=== PATIENT | male | born 1980 | race Caucasian/White ===

== ENCOUNTER 2021-02-12 09:52 | Day surgery (SDC) | payer BC, OTHER ==
[2021-01-25 15:11] VITALS: BMI 41.5
[~2021-02-12 09:52] MED LIST: LACTATED RINGERS 1,000 ML IV SCH; LIDOCAINE 1% (10MG/ML) FOR IV START INTRADERMA PRN
[2021-02-12] MEDS ORDERED: LACTATED RINGERS 1,000 ML IV ONE (10:10)
[2021-02-12 10:11] VITALS: TEMP 98.1
[2021-02-12] MEDS ORDERED: PROPOFOL 10 MG/ML 20 ML VIAL IV ONE (10:44)
[2021-02-12] MEDS ORDERED: MIDAZOLAM 2 MG/2 ML VIAL ONE (10:44)
[2021-02-12] MEDS ORDERED: LIDOCAINE 1% INJ 10MG/ML (20 ML MDV) ONE (10:44)
[2021-02-12] MEDS ORDERED: GLYCOPYRROLATE 0.2 MG/ML 2 ML VIAL ONE (10:44)
[2021-02-12] MEDS ORDERED: KETAMINE 10 MG/ML 20 ML VIAL ONE (10:44)
--- NOTE | 2021-02-12 10:54 | P.GSHP ---
History of Present Illness H&P Date: 02/12/21 Chief Complaint: Rectal bleeding, GERD Patient here today for upper and lower endoscopy. Patient is having bright red blood per rectum recently. Father with colon cancer. Mild chronic reflux. Controlled with omeprazole. History of previous sleeve gastrectomy. Past Medical History Past Medical History: Asthma, GERD/Reflux, Hyperlipidemia, Hypertension Additional Past Medical History / Comment(s): Obesity, chest palpitations. "Lost 100 lbs, no BP problems now". Hx Asthma as a child. "Intermittent bleeding with bowel movements." Hx kidney stones. "Severe Jaundice as a baby." Chronic right leg pain/limps. Migraine headaches. History of Any Multi-Drug Resistant Organisms: None Reported Past Surgical History: Adenoidectomy, Bariatric Surgery, Ear Surgery, Hernia Repair, Orthopedic Surgery Additional Past Surgical History / Comment(s): Right knee arthroscopy, right tibial tumor removed (benign), titanium nail in and out of right tibia, right foot surgery, Gasrtic Sleeve, colonoscopy X2, EGD X2. Past Anesthesia/Blood Transfusion Reactions: Previous Problems w/ Anesthesia Additional Past Anesthesia/Blood Transfusion Reaction / Comment(s): Slow to wake up last 2 surgeries. Past Psychological History: Bipolar, Schizophrenia Additional Psychological History / Comment(s): Clauserphobic. Smoking Status: Former smoker Past Alcohol Use History: Rare Additional Past Alcohol Use History / Comment(s): Quit smoking in 2008. Past Drug Use History: None Reported - Past Family History Father Family Medical History: Cancer Additional Family Medical History / Comment(s): Colon cancer. Medications and Allergies Home Medications Medication Instructions Recorded Confirmed Type Venlafaxine HCl [Effexor XR] 150 mg PO BID 05/16/14 02/07/21 History Atorvastatin [Lipitor] 20 mg PO DAILY 01/25/21 02/07/21 History Multivitamins, Thera [Multivitamin 1 tab PO DAILY 01/25/21 02/07/21 History (formulary)] OLANZapine [ZyPREXA] 20 mg PO HS 01/25/21 02/07/21 History Propranolol HCl [Inderal LA] 160 mg PO HS 01/25/21 02/07/21 History SUMAtriptan SUCCINATE [Imitrex] 100 mg PO DIRECTED PRN 01/25/21 02/07/21 History lamoTRIgine [LaMICtal] 200 mg PO HS 01/25/21 02/07/21 History oxyCODONE-APAP 10-325MG [Percocet 1 tab PO QID 01/25/21 02/07/21 History 10-325 mg] Allergies Allergy/AdvReac Type Severity Reaction Status Date / Time oxcarbazepine Allergy Rash/Hives Verified 01/25/21 14:52 [From Trileptal] Surgical - Exam Vital Signs Temp Pulse Resp BP Pulse Ox 98.1 F 71 18 152/95 98 02/12/21 10:10 02/12/21 10:10 02/12/21 10:10 02/12/21 10:10 02/12/21 10:10 Physical exam: General: Well-developed, well-nourished HEENT: Normocephalic, sclerae nonicteric Abdomen: Nontender, nondistended Extremities: No edema Neuro: Alert and oriented Assessment and Plan (1) Rectal bleeding Narrative/Plan: Will proceed with upper and lower endoscopy Current Visit: Yes Status: Acute Code(s): K62.5 - HEMORRHAGE OF ANUS AND RECTUM SNOMED Code(s): 16222312
--- NOTE | 2021-02-12 11:15 | P.PCN ---
Date of Procedure: 02/12/21 Procedure(s) Performed: PREOPERATIVE DIAGNOSIS: GERD, rectal bleeding POSTOPERATIVE DIAGNOSIS: Mild gastritis, poor prep PROCEDURE: 1. EGD with biopsy 2. Colonoscopy ANESTHESIA: MAC SURGEON: Willy Jackson M.D. SPECIMENS: Antrum ENDOSCOPIC PROCEDURE: The patient was on the endoscopy table in the left de cubitus position. The Olympus gastroscope was inserted into the oropharynx and passed under direct visualization to the region of the third portion of the duodenum. From that point the scope was slowly withdrawn inspecting all surfaces carefully. There were no neoplastic inflammatory or polypoid lesions throughout the duodenum. The pylorus was widely patent. The stomach was carefully inspected. There was mild gastritis present. A biopsy of the antrum took place to rule out H. pylori. Retroflexion was not performed because of the previous sleeve gastrectomy. The sleeve appeared well-healed. The stomach was appropriately sized. No visible hiatal hernia was seen. The esophagus was then carefully examined. There were no neoplastic inflammatory or polypoid lesions throughout the visualized esophagus. The patient was kept on the endoscopy table in the left decubitus position. The Olympus colonoscope was inserted into the anus and passed under direct visualization to the base of the cecum. The appendiceal orifice was visualized. From that point the scope was slowly withdrawn inspecting all surfaces carefully. There were no neoplastic inflammatory or polypoid lesions throughout the cecum, ascending, transverse, descending, sigmoid and rectum. There was no visible diverticulosis noted. The patient's prep was quite poor. Some liquid and solid stool scattered throughout the entire colon. Digital rectal examination was normal. The patient was taken to the recovery room in stable condition per anesthesia guidelines. RECOMMENDATIONS: Resume diet. Patient may consider short-term repeat colonoscopy given the poor prep today. No definite source of rectal bleeding seen. Suspect hemorrhoidal bleeding.
[2021-02-12 11:35] VITALS: BP 138/86; PULSE 77; RESP 18
== END 2021-02-12 12:00 | disposition home or self-care (01) ==
LOC: ORWHC2ENDO 09:52
PROVIDERS: ATTEND Surgery
DX: K21.9 Gastro-esophageal reflux disease without esophagitis (principal); K31.9 Disease of stomach and duodenum, unspecified; K29.71 Gastritis, unspecified, with bleeding; J45.909 Unspecified asthma, uncomplicated; E78.5 Hyperlipidemia, unspecified; I10 Essential (primary) hypertension; F31.9 Bipolar disorder, unspecified; F20.9 Schizophrenia, unspecified; F40.240 Claustrophobia; G47.33 Obstructive sleep apnea (adult) (pediatric); E66.9 Obesity, unspecified; Z68.41 Body mass index [BMI] 40.0-44.9, adult; Z79.899 Other long term (current) drug therapy; Z80.0 Family history of malignant neoplasm of digestive organs; Z87.891 Personal history of nicotine dependence; Z88.8 Allergy status to other drugs, medicaments and biological substances; Z98.84 Bariatric surgery status
CPT/HCPCS: 88305; 45378; 43239; J2250; J2001; J2704

== ENCOUNTER 2023-12-17 11:35 | Emergency (ER) | payer OTHER ==
[2023-12-17 12:11] VITALS: TEMP 98.7
--- NOTE | 2023-12-17 12:36 | ED ---
Head Injury HPI - General Chief complaint: Head Injury Stated complaint: head injury/ [facility] Time Seen by Provider: 12/17/23 11:50 Source: patient Mode of arrival: ambulatory Limitations: no limitations - History of Present Illness Initial comments: Patient is a 43-year-old gentleman presents emergency room with pain and head injury while at work. 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 Patient states that he saw stars and and vision went black for a few seconds. He did not pass out or fall to the ground. Patient did not have any vomiting at the time or since the head injury. He has had radius mild concussions when he was a teenager but nothing recently. No history skull fracture TBI. Patient has some mild pain at this time. He is alert and oriented at this time and moving all extremities. He denies any severe dizziness or neck pain. he is not on anticoagulation. he takes chronic pain medication for chronic leg pain. - Related Data Home Medications Medication Instructions Recorded Confirmed Venlafaxine HCl [Effexor XR] 150 mg PO BID 05/16/14 02/07/21 Atorvastatin [Lipitor] 20 mg PO DAILY 01/25/21 02/07/21 Multivitamins, Thera [Multivitamin 1 tab PO DAILY 01/25/21 02/07/21 (formulary)] OLANZapine [ZyPREXA] 20 mg PO HS 01/25/21 02/07/21 Propranolol HCl [Inderal LA] 160 mg PO HS 01/25/21 02/07/21 SUMAtriptan succinate [Imitrex] 100 mg PO DIRECTED PRN 01/25/21 02/07/21 lamoTRIgine [LaMICtal] 200 mg PO HS 01/25/21 02/07/21 oxyCODONE-APAP 10-325MG [Percocet 1 tab PO QID 01/25/21 02/07/21 10-325 mg] Allergies/Adverse reactions: Allergies Allergy/AdvReac Type Severity Reaction Status Date / Time oxcarbazepine Allergy Rash/Hives Verified 12/17/23 11:42 [From Trileptal] Review of Systems ROS Statement: Those systems with pertinent positive or pertinent negative responses have been documented in the HPI. ROS Other: All systems not noted in ROS Statement are negative. Past Medical History Past Medical History: Asthma, GERD/Reflux, Hyperlipidemia, Hypertension Additional Past Medical History / Comment(s): Obesity, chest palpitations. "Lost 100 lbs, no BP problems now". Hx Asthma as a child. "Intermittent bleeding with bowel movements." Hx kidney stones. "Severe Jaundice as a baby." Chronic right leg pain/limps. Migraine headaches. History of Any Multi-Drug Resistant Organisms: None Reported Past Surgical History: Adenoidectomy, Bariatric Surgery, Ear Surgery, Hernia Repair, Orthopedic Surgery Additional Past Surgical History / Comment(s): Right knee arthroscopy, right tibial tumor removed (benign), titanium nail in and out of right tibia, right foot surgery, Gasrtic Sleeve, colonoscopy X2, EGD X2. Past Anesthesia/Blood Transfusion Reactions: Previous Problems w/ Anesthesia Additional Past Anesthesia/Blood Transfusion Reaction / Comment(s): Slow to wake up last 2 surgeries. Past Psychological History: Bipolar, Schizophrenia Smoking Status: Former smoker Past Alcohol Use History: Rare Past Drug Use History: None Reported - Past Family History Father Family Medical History: Cancer Additional Family Medical History / Comment(s): Colon cancer. General Exam Limitations: no limitations General appearance: alert, in no apparent distress Head exam: Present: other (Mild ecchymosis over the top of the head without any severe swelling and no abrasions or lacerations. There is no hemotympanum bilaterally. Pupils are equal and reactive bilaterally. Negative for any Gomez sign or raccoon eyes. Alert and oriented and moving all extremities) Eye exam: Present: normal appearance, PERRL Pupils: Present: normal accommodation ENT exam: Present: normal exam, mucous membranes moist, TM's normal bilaterally Neck exam: Present: normal inspection, full ROM. Absent: tenderness, meningismus Respiratory exam: Present: normal lung sounds bilaterally. Absent: respiratory distress Cardiovascular Exam: Present: regular rate, normal rhythm GI/Abdominal exam: Present: soft Extremities exam: Present: full ROM Back exam: Present: full ROM Neurological exam: Present: alert, oriented X3, CN II-XII intact Psychiatric exam: Present: normal affect, normal mood Skin exam: Present: warm, dry Course Vital Signs 12/17/23 12/17/23 11:38 13:06 Temperature 98.7 F Pulse Rate 73 68 Respiratory 16 18 Rate Blood Pressure 138/90 95/65 O2 Sat by Pulse 93 L 93 L Oximetry - Reevaluation(s) Reevaluation #1: 12/17/23 1225 Patient is alert and oriented in the emergency room. He is well appearing and there is no sign of a medically injury. I discussed computed tomography scan versus observing symptoms over the next few days with the patient. He prefers to forego the computed tomography scan at this time and will return if he has worsening pain, vomiting, dizziness, vision changes, abnormal behavior abnormal speech or new concerning symptoms. This management of the injury and symptoms was fully discussed with attending ED physician Dr. Ochoa today. Medical Decision Making - Medical Decision Making Was pt. sent in by a medical professional or institution (, PA, ENGRAVING SUPERVISOR, urgent care, hospital, or shelter...) When possible be specific @ -[No] Did you speak to anyone other than the patient for history (EMS, parent, family, police, friend...)? What history was obtained from this source @ -[No] Did you review nursing and triage notes (agree or disagree)? Why? @ -[I reviewed and agree with nursing and triage notes] Were old charts reviewed (outside hosp., previous admission, EMS record, old EKG, old radiological studies, urgent care reports/EKG's, shelter records)? Report findings @ -[No old charts were reviewed] Differential Diagnosis (chest pain, altered mental status, abdominal pain women, abdominal pain men, vaginal bleeding, weakness, fever, dyspnea, syncope, headache, dizziness, GI bleed, back pain, seizure, CVA, palpatations, mental health, musculoskeletal)? @ -Head injury without loss consciousness, concussion, contusion of the head EKG interpreted by me (3pts min.). @ -[As above] X-rays interpreted by me (1pt min.). @ -[None done] CT interpreted by me (1pt min.). @ -[None done] U/S interpreted by me (1pt. min.). @ -[None done] What testing was considered but not performed or refused? (CT, X-rays, U/S, labs)? Why? @ -[Computed tomography scan is discussed however not ordered. As there is only minor blunt head trauma and there is no signs of complications or TBI. A computed tomography scan patient prefers to monitor symptoms at home over the next few days and will return if something arises or changes. What meds were considered but not given or refused? Why? @ -[None] Did you discuss the management of the patient with other professionals (professionals i.e. , PA, ENGRAVING SUPERVISOR, lab, RT, psych nurse, case management social worker, geoscience specialist, teacher, gunnery/ordnance officer, case management social worker)? Give summary @ -NO Was smoking cessation discussed for >3mins.? @ -[No] Was critical care preformed (if so, how long)? @ -[No] Were there social determinants of health that impacted care today? How? (Homelessness, low income, unemployed, alcoholism, drug addiction, transportation, low edu. Level, literacy, decrease access to med. care, custodial, rehab)? @ -[No] Was there de-escalation of care discussed even if they declined (Discuss DNR or withdrawal of care, Hospice)? DNR status @ -[No] What co-morbidities impacted this encounter? (DM, HTN, Smoking, COPD, CAD, Cancer, CVA, ARF, Chemo, Hep., AIDS, mental health diagnosis, sleep apnea, morbid obesity)? @ -[None] Was patient admitted / discharged? Hospital course, mention meds given and route, prescriptions, significant lab abnormalities, going to OR and other pertinent info. @ -the patient is stable and able to follow up as an outpatient. i discussed signs to return to the ed for re evaluation and possible CT scan at that time. the patient and understands and agrees to this plan. the patients injury, symptoms and management were fully discussed and agree upon with attending ed physician Dr Ochoa today. ] Undiagnosed new problem with uncertain prognosis? @ -[No] Drug Therapy requiring intensive monitoring for toxicity (Heparin, Nitro, Insulin, Cardizem)? @ -[No] Were any procedures done? @ -[No] Diagnosis/symptom? @ -[No head trauma, suspected concussion, head injury without loss consciousness Acute, or Chronic, or Acute on Chronic? @ -acute Uncomplicated (without systemic symptoms) or Complicated (systemic symptoms)? @ -[default] Side effects of treatment? @ -[No] Exacerbation, Progression, or Severe Exacerbation? @ -[No] Poses a threat to life or bodily function? How? (Chest pain, [place], [place], pneumonia, PE, COPD, DKA, ARF, appy, cholecystitis, CVA, Diverticulitis, Homicidal, Suicidal, threat to staff... and all critical care pts) @ -[No] Disposition Clinical Impression: Closed head injury, Concussion without loss of consciousness Disposition: HOME SELF-CARE Condition: Good Instructions (If sedation given, give patient instructions): Concussion (ED), Head Injury (ED) Additional Instructions: Return for any worsening pain, vision changes, dizziness, vomiting, abnormal behavior, abnormal speech or new concerning symptoms. Is patient prescribed a controlled substance at d/c from ED?: No If prescribed controlled substance>3 days was MAPS reviewed?: No Referrals: Colby Blevins MD [Primary Care Provider] - 1-2 days Time of Disposition: 12:35
[2023-12-17 13:16] VITALS: BP 95/65; PULSE 68; RESP 18
== END 2023-12-17 13:07 | disposition home or self-care (01) ==
LOC: EC 11:35
DX: S06.0X0A Concussion without loss of consciousness, initial encounter (principal); R40.2410 Glasgow coma scale score 13-15, unspecified time; J45.909 Unspecified asthma, uncomplicated; E78.5 Hyperlipidemia, unspecified; I10 Essential (primary) hypertension; F31.9 Bipolar disorder, unspecified; Z87.891 Personal history of nicotine dependence; Z79.899 Other long term (current) drug therapy; Z88.8 Allergy status to other drugs, medicaments and biological substances; W22.09XA Striking against other stationary object, initial encounter
CPT/HCPCS: 99283

== ENCOUNTER 2023-12-24 07:13 | Emergency (ER) | payer OTHER ==
[2023-12-24] MEDS: SODIUM CHLORIDE 0.9% 1,000 ML IV STA (07:36)
--- NOTE | 2023-12-24 07:46 | ED ---
Headache HPI - General Chief Complaint: Headache Stated Complaint: headache,dizziness Time Seen by Provider: 12/24/23 07:19 Source: patient, RN notes reviewed Mode of arrival: ambulatory Limitations: no limitations - History of Present Illness Initial Comments: This is a 43-year-old male who presents to the emergency department for a headache. Patient was evaluated here 7 days ago for a head injury after hitting the top of his head on a steel beam at work. States that since then he has had a persistent headache and dizziness. He is taking ibuprofen and his Imitrex without any relief. He did not have any imaging done when he first came here. He was told that if symptoms worsen he needed to return. He did not have any loss of consciousness during this event and is not taking any blood thinners. MD Complaint: headache - Related Data Home Medications Medication Instructions Recorded Confirmed Venlafaxine HCl [Effexor XR] 150 mg PO BID 05/16/14 02/07/21 Atorvastatin [Lipitor] 20 mg PO DAILY 01/25/21 02/07/21 Multivitamins, Thera [Multivitamin 1 tab PO DAILY 01/25/21 02/07/21 (formulary)] OLANZapine [ZyPREXA] 20 mg PO HS 01/25/21 02/07/21 Propranolol HCl [Inderal LA] 160 mg PO HS 01/25/21 02/07/21 SUMAtriptan succinate [Imitrex] 100 mg PO DIRECTED PRN 01/25/21 02/07/21 lamoTRIgine [LaMICtal] 200 mg PO HS 01/25/21 02/07/21 oxyCODONE-APAP 10-325MG [Percocet 1 tab PO QID 01/25/21 02/07/21 10-325 mg] Previous Rx's Medication Instructions Recorded Ibuprofen 800 mg PO Q8H PRN #30 tab 12/24/23 Ondansetron Odt [Zofran Odt] 4 mg PO Q8HR PRN #20 tab 12/24/23 Allergies Allergy/AdvReac Type Severity Reaction Status Date / Time oxcarbazepine Allergy Rash/Hives Verified 12/17/23 11:42 [From Trileptal] Review of Systems ROS Statement: Those systems with pertinent positive or pertinent negative responses have been documented in the HPI. ROS Other: All systems not noted in ROS Statement are negative. Past Medical History Past Medical History: Asthma, GERD/Reflux, Hyperlipidemia, Hypertension Additional Past Medical History / Comment(s): Obesity, chest palpitations. "Lost 100 lbs, no BP problems now". Hx Asthma as a child. "Intermittent bleeding with bowel movements." Hx kidney stones. "Severe Jaundice as a baby." Chronic right leg pain/limps. Migraine headaches. History of Any Multi-Drug Resistant Organisms: None Reported Past Surgical History: Adenoidectomy, Bariatric Surgery, Ear Surgery, Hernia Repair, Orthopedic Surgery Additional Past Surgical History / Comment(s): Right knee arthroscopy, right tibial tumor removed (benign), titanium nail in and out of right tibia, right foot surgery, Gasrtic Sleeve, colonoscopy X2, EGD X2. Past Anesthesia/Blood Transfusion Reactions: Previous Problems w/ Anesthesia Additional Past Anesthesia/Blood Transfusion Reaction / Comment(s): Slow to wake up last 2 surgeries. Past Psychological History: Bipolar, Schizophrenia Smoking Status: Former smoker Past Alcohol Use History: Rare Past Drug Use History: None Reported - Past Family History Father Family Medical History: Cancer Additional Family Medical History / Comment(s): Colon cancer. General Exam Limitations: no limitations General appearance: alert, in no apparent distress Head exam: Present: atraumatic, normocephalic, normal inspection Eye exam: Present: normal appearance, PERRL, EOMI. Absent: scleral icterus, conjunctival injection, periorbital swelling Respiratory exam: Present: normal lung sounds bilaterally. Absent: respiratory distress, wheezes, rales, rhonchi, stridor Cardiovascular Exam: Present: regular rate, normal rhythm, normal heart sounds. Absent: systolic murmur, diastolic murmur, rubs, gallop, clicks Neurological exam: Present: alert, oriented X3, CN II-XII intact Psychiatric exam: Present: normal affect, normal mood Skin exam: Present: warm, dry, intact, normal color. Absent: rash Course Vital Signs 12/24/23 12/24/23 12/24/23 07:15 09:56 11:26 Temperature 98.6 F 98.4 F 98.2 F Pulse Rate 76 82 Respiratory 16 18 18 Rate Blood Pressure 165/104 120/78 138/91 O2 Sat by Pulse 98 98 99 Oximetry Medical Decision Making - Medical Decision Making This is a 43-year-old male who presents to the emergency department for a headache. Was pt. sent in by a medical professional or institution? @ -No Did you speak to anyone other than the patient for history? @ -No Did you review nursing and triage notes? @ -Yes, and I agree, it is accurate with regards to the patient's symptoms. Were old charts reviewed? @ -No Differential Diagnosis? @ -Differential Headache: Migraine, tension, cluster, carbon monoxide, central venous thrombosis, pension karma temporal arteritis, acute closure glaucoma, intercranial hemorrhage, mastoiditis, sinusitis, head injury, this is not meant to be an all-inclusive list. EKG interpreted by me (3pts min.)? @ -Not obtained X-rays interpreted by me (1pt min.)? @ -Not obtained CT interpreted by me (1pt min.)? @ -Computed tomography scan of the brain and c-spine obtained. My interpreta tion identifies no evidence of an acute intracranial hemorrhage, skull fracture, or cervical spine fracture. U/S interpreted by me (1pt. min.)? @ -Not obtained What testing was considered but not performed? (CT, X-rays, U/S, labs)? Why? @ -None What meds were considered but not given? Why? @ -None Did you discuss the management of the patient with other professionals? @ -No Did you reconcile home meds? @ -No Was smoking cessation discussed for >3mins.? @ -No Was critical care preformed (if so, how long)? @ -No Were there social determinants of health that impacted care today? How? (Homelessness, low income, unemployed, alcoholism, drug addiction, transportation, low edu. Level, literacy, decrease access to med. care, skilled nursing, rehab)? @ -No Was there de-escalation of care discussed even if they declined? (Discuss DNR or withdrawal of care, Hospice)? @ -No What co-morbidities impacted this encounter? (DM, HTN, Smoking, COPD, CAD, Cancer, CVA, Hep., AIDS, mental health diagnosis, sleep apnea, morbid obesity)? @ -None Was patient admitted / discharged? @ -Discharged. CT scan of the brain and C-spine obtained revealing no acute process. Patient initially treated with a migraine cocktail consisting of IV fluids, Toradol, Decadron, Reglan, and Benadryl. He only had mild improvement in symptoms and was given an additional dose of Toradol along with Dilaudid. States that symptoms improved to a reasonable extent at that point and he was comfortable with discharge home. Discussed with the patient the possibility that he may have developed a concussion. Prescription for ibuprofen and Zofran provided with dosing instructions reviewed. Otherwise advised follow-up with his primary care provider. Undiagnosed new problem with uncertain prognosis? @ -None Drug Therapy requiring intensive monitoring for toxicity (Heparin, Nitro, Insulin, Cardizem)? @ -None Were any procedures done? @ -None Diagnosis/symptom? @ -Headache Acute, or Chronic, or Acute on Chronic? @ -Acute Uncomplicated (without systemic symptoms) or Complicated (systemic symptoms)? @ -Uncomplicated Side effects of treatment? @ -None Exacerbation, Progression, or Severe Exacerbation] @ -Not applicable Poses a threat to life or bodily function? @ -No Return precautions reviewed in depth, the patient is instructed to return to the emergency department with any new, worsening, or concerning symptoms. Patient verbalized understanding. This case was discussed in detail with the attending ED physician, Dr. Salazar Presentation, findings, and treatment plan discussed in detail as well. - Radiology Data Radiology results: report reviewed, image reviewed Disposition Clinical Impression: Headache Disposition: HOME SELF-CARE Instructions (If sedation given, give patient instructions): Acute Headache (ED) Additional Instructions: Return to the emergency department with any new, worsening, or concerning symptoms. Alternate with ibuprofen and Tylenol as needed for pain relief. Take the Zofran up to every 8 hours as needed for nausea and vomiting. Follow up with your primary care provider in 1-2 days. Prescriptions: Ibuprofen 800 mg PO Q8H PRN #30 tab PRN Reason: Pain Ondansetron Odt [Zofran Odt] 4 mg PO Q8HR PRN #20 tab PRN Reason: Nausea And Vomiting Is patient prescribed a controlled substance at d/c from ED?: No Referrals: Colby Blevins MD [Primary Care Provider] - 1-2 days Time of Disposition: 10:47
[2023-12-24] MEDS: diphenhydrAMINE 50 MG/ML 1 ML VIAL IVP STA (07:59)
[2023-12-24] MEDS: DEXAMETHASONE SOD PHOSPHATE 10 MG/ML 1 ML VIAL IVP STA (07:59)
[2023-12-24] MEDS: METOCLOPRAMIDE 5 MG/ML 2 ML VIAL IVP STA (07:59)
[2023-12-24] MEDS: KETOROLAC 15 MG/ML 1 ML VIAL IVP STA ×2 (08:00→09:31)
--- NOTE | 2023-12-24 09:01 | CT ---
EXAMINATION TYPE: CT brain wo con DATE OF EXAM: 12/24/2023 COMPARISON: None INDICATION: Head injury last week, headache DLP: 1138 mGycm, Automated exposure control for dose reduction was used. CONTRAST: None CT of the brain is performed utilizing 3 mm thick sections through the posterior fossa and 3 mm thick sections through the remaining calvarium. Study is performed within 24 hours of arrival to the hosp [place]. No abnormal hyperdensity is present to suggest an acute intracranial hemorrhage. No mass lesion is evident. No acute infarcts are evident. Ventricles and sulci are appropriate for the patient age. Paranasal sinuses and mastoid air cells within the [id number] are clear. IMPRESSION: 1. No acute intracranial process. Follow-up MRI can be performed as clinically indicated.
[2023-12-24] MEDS: HYDROmorphone 0.5 MG/0.5 ML SYRINGE IVP STA (09:30)
[2023-12-24 10:00] VITALS: RESP 18
[2023-12-24 11:39] VITALS: BP 138/91; PULSE 82; TEMP 98.2
== END 2023-12-24 11:28 | disposition home or self-care (01) ==
LOC: EC 07:13
DX: R51.9 Headache, unspecified (principal); I10 Essential (primary) hypertension; J45.909 Unspecified asthma, uncomplicated; E78.5 Hyperlipidemia, unspecified; F31.9 Bipolar disorder, unspecified; F20.9 Schizophrenia, unspecified; E66.9 Obesity, unspecified; Z68.41 Body mass index [BMI] 40.0-44.9, adult; Z79.899 Other long term (current) drug therapy; Z88.8 Allergy status to other drugs, medicaments and biological substances; Z87.891 Personal history of nicotine dependence
CPT/HCPCS: 70450; 99284; 96374; 96375 ×4; 96376; 96361 ×2; J1200; J1100; J2765; J1885; J1170

== ENCOUNTER 2024-11-08 07:37 | Day surgery (SDC) | payer BC, OTHER ==
[2024-11-02 15:07] VITALS: BMI 43.5
[2024-11-08 08:32] VITALS: RESP 16; TEMP 97.4
[2024-11-08] MEDS: SODIUM CHLORIDE 0.9% 1,000 ML IV ONE (08:40)
[2024-11-08] MEDS ORDERED: PROPOFOL 10 MG/ML 20 ML VIAL IV ONE (09:05)
--- NOTE | 2024-11-08 09:11 | P.GSHP ---
History of Present Illness H&P Date: 11/08/24 Chief Complaint: GI bleed 44-year-old male here for EGD and colonoscopy. Patient with recent melanotic stools and bright red blood per rectum. Patient has a history of previous rectal bleeding. Last upper and lower endoscopy 3.5 years ago. Family history of colon cancer in his father. Past Medical History Past Medical History: Asthma, GERD/Reflux Additional Past Medical History / Comment(s): Obesity, chest palpitations. "Lost 100 lbs, no BP problems now". Hx Asthma as a child. "Intermittent bleeding with bowel movements." Hx kidney stones. "Severe Jaundice as a baby." Chronic right leg pain/limps. Migraine headaches. History of Any Multi-Drug Resistant Organisms: None Reported Past Surgical History: Adenoidectomy, Bariatric Surgery, Ear Surgery, Hernia Repair, Orthopedic Surgery Additional Past Surgical History / Comment(s): Right knee arthroscopy, right tibial tumor removed (benign), right foot surgery, Gasrtic Sleeve, colonoscopy X2, EGD X2. Past Anesthesia/Blood Transfusion Reactions: Previous Problems w/ Anesthesia Additional Past Anesthesia/Blood Transfusion Reaction / Comment(s): Slow to wake up last 2 surgeries., no blood transfusion Smoking Status: Former smoker - Past Family History Father Family Medical History: Cancer Additional Family Medical History / Comment(s): Colon cancer. Mother Family Medical History: Cancer Additional Family Medical History / Comment(s): lymphoma from round up Medications and Allergies Home Medications Medication Instructions Recorded Confirmed Type Venlafaxine HCl [Effexor XR] 150 mg PO BID 05/16/14 11/08/24 History OLANZapine [ZyPREXA] 30 mg PO HS 01/25/21 11/08/24 History Propranolol HCl [Inderal LA] 160 mg PO HS 01/25/21 11/08/24 History SUMAtriptan succinate [Imitrex] 100 mg PO DIRECTED PRN 01/25/21 11/08/24 History lamoTRIgine [LaMICtal] 200 mg PO DAILY 01/25/21 11/08/24 History oxyCODONE-APAP 10-325MG [Percocet 1 tab PO QID 01/25/21 11/08/24 History 10-325 mg] Ibuprofen 800 mg PO Q8H PRN #30 tab 12/24/23 11/08/24 Rx Ondansetron Odt [Zofran Odt] 4 mg PO Q8HR PRN #20 tab 12/24/23 11/08/24 Rx Baclofen 10 mg PO HS 11/02/24 11/08/24 History Cariprazine HCl [Vraylar] 3 mg PO DAILY 11/02/24 11/08/24 History Allergies Allergy/AdvReac Type Severity Reaction Status Date / Time oxcarbazepine Allergy Rash/Hives Verified 11/08/24 08:35 [From Trileptal] Surgical - Exam Vital Signs Temp Pulse Resp BP Pulse Ox 97.4 F L 72 16 122/77 97 11/08/24 08:29 11/08/24 08:29 11/08/24 08:29 11/08/24 08:29 11/08/24 08:29 Physical exam: General: Well-developed, well-nourished HEENT: Normocephalic, sclerae nonicteric Abdomen: Nontender, nondistended Extremities: No edema Neuro: Alert and oriented Assessment and Plan (1) Rectal bleeding Narrative/Plan: Will proceed with upper and lower endoscopy at this time. Current Visit: No Status: Acute Code(s): K62.5 - HEMORRHAGE OF ANUS AND RECTUM SNOMED Code(s): 58327424
--- NOTE | 2024-11-08 09:31 | P.PCN ---
Date of Procedure: 11/08/24 Procedure(s) Performed: PREOPERATIVE DIAGNOSIS: GI bleed, melena, rectal bleeding POSTOPERATIVE DIAGNOSIS: Mild gastritis, sigmoid colon polyp, mild proctitis PROCEDURE: 1. EGD with biopsy 2. Colonoscopy with snare polypectomy and biopsy [place] [facility] [place] [facility] [place]: Willy Jackson M.D. SPECIMENS: Antrum ENDOSCOPIC PROCEDURE: The patient was on the endoscopy table in the left decubitus position. The Olympus gastroscope was inserted into the oropharynx and passed under direct visualization to the region of the third portion of the duodenum. From that point the scope was slowly withdrawn inspecting all surfaces carefully. There were no neoplastic inflammatory or polypoid lesions throughout the duodenum. The pylorus was widely patent. The stomach was carefully inspected. There was mild gastritis present. The patient's previous sleeve was patent without evidence of stricture or ulceration. There was no visible hiatal hernia. The esophagus was then carefully examined. There were no neoplastic inflammatory or polypoid lesions throughout the visualized esophagus. The patient was kept on the endoscopy table in the left decubitus position. The Olympus colonoscope was inserted into the anus and passed under direct visualization to the base of the cecum. The appendiceal orifice was visualized. From that point the scope was slowly withdrawn inspecting all surfaces carefully. There were no neoplastic inflammatory or polypoid lesions throughout the cecum, ascending, transverse, and descending colon. In the sigmoid colon a small polyp was seen and removed using the cold snare technique. The remainder of the sigmoid was normal. In the distal rectum involving the last 3 to 4 cm of the rectum there was mild proctitis present. Biopsies were taken. This is likely the source of recent bleeding. Digital rectal examination was normal. No diverticulosis was seen. The patient was taken to the recovery room in stable condition per anesthesia guidelines. RECOMMENDATIONS: Await biopsy results. Resume diet. Repeat colonoscopy 5 years.
[2024-11-08 10:14] VITALS: BP 95/63; PULSE 73
== END 2024-11-08 10:15 | disposition home or self-care (01) ==
LOC: ORWHC2ENDO 07:37
PROVIDERS: ATTEND Surgery
DX: K62.89 Other specified diseases of anus and rectum (principal); K63.89 Other specified diseases of intestine; D12.5 Benign neoplasm of sigmoid colon; K21.9 Gastro-esophageal reflux disease without esophagitis; K29.50 Unspecified chronic gastritis without bleeding; G43.909 Migraine, unspecified, not intractable, without status migrainosus; F31.9 Bipolar disorder, unspecified; E66.01 Morbid (severe) obesity due to excess calories; Z80.0 Family history of malignant neoplasm of digestive organs; Z79.891 Long term (current) use of opiate analgesic; Z79.899 Other long term (current) drug therapy; Z98.890 Other specified postprocedural states; Z87.891 Personal history of nicotine dependence; Z98.84 Bariatric surgery status; Z87.442 Personal history of urinary calculi; Z88.8 Allergy status to other drugs, medicaments and biological substances
CPT/HCPCS: 88305; 45380; 45385; 43239; J2704

== ENCOUNTER → 2024-11-21 | Outpatient (CLI) | payer OTHER ==
--- NOTE | 2024-11-21 11:19 | XR ---
EXAMINATION TYPE: XR elbow complete RT DATE OF EXAM: 11/21/2024 11:15 AM INDICATION: Patient age:Male; 44 years old; Reason for study: M77.11 LATERAL EPICONDYLITIS, RIGHT ELBOW; PHH. pain COMPARISON: None TECHNIQUE: The right elbow was examined in AP, lateral, and oblique projections. FINDINGS: No evidence of any acute osseous pathology, joint dislocation, or soft tissue swelling is n oted. No evidence of joint effusion is present. IMPRESSION: No evidence of acute fracture. [facility], , 11/21/2024 11:16 AM
== END | disposition home or self-care (01) ==
LOC: RADXRMAIN 10:57
PROVIDERS: ATTEND Emergency Medicine
DX: M77.11 Lateral epicondylitis, right elbow (principal)

== ENCOUNTER 2025-01-30 16:29 | Inpatient (IN) | payer BC, MEDICAID, OTHER ==
--- NOTE | 2025-01-30 16:53 | ED ---
Psych HPI - General Chief Complaint: Psychiatric Symptoms Stated Complaint: Mental Health Eval. Time Seen by Provider: 01/30/25 16:36 Source: patient, RN notes reviewed Mode of arrival: ambulatory Limitations: no limitations - History of Present Illness Initial Comments: This is a 44-year-old male presents emergency department with chief complaint of needing psychiatric evaluation. Patient states he is hearing voices, delusional thoughts and hallucinations. Patient states he has schizoaffective he states he has been taking his medications as directed but states that symptoms have been worsening. Patient denies being suicidal homicidal denies any drug or alcohol abuse. - Related Data Home Medications Medication Instructions Recorded Confirmed Venlafaxine HCl [Effexor XR] 300 mg PO HS 05/16/14 01/30/25 SUMAtriptan succinate [Imitrex] 100 mg PO DAILY PRN 01/25/21 01/30/25 lamoTRIgine [LaMICtal] 200 mg PO HS 01/25/21 01/30/25 oxyCODONE-APAP 10-325MG [Percocet 1 tab PO QID 01/25/21 01/30/25 10-325 mg] Baclofen 10 mg PO HS 11/02/24 01/30/25 Cariprazine HCl [Vraylar] 3 mg PO DAILY 11/02/24 01/30/25 Gabapentin [Neurontin] 300 mg PO TID 01/30/25 01/30/25 Ketoconazole 2% Shampoo [Nizoral] 1 applic TOPICAL Q3D 01/30/25 01/30/25 Lurasidone [Latuda] 40 mg PO DAILY 01/30/25 01/30/25 OLANZapine [ZyPREXA] 10 mg PO HS 01/30/25 01/30/25 OLANZapine [ZyPREXA] 20 mg PO HS 01/30/25 01/30/25 Propranolol HCl [Propranolol HCl 120 mg PO HS 01/30/25 01/30/25 ER] Topiramate [Topamax] 100 mg PO W/SUPPER 01/30/25 01/30/25 lamoTRIgine [LaMICtal] 100 mg PO DAILY 01/30/25 01/30/25 Allergies Allergy/AdvReac Type Severity Reaction Status Date / Time oxcarbazepine Allergy Rash/Hives Verified 01/30/25 16:57 [From Trileptal] Review of Systems ROS Statement: Those systems with pertinent positive or pertinent negative responses have been documented in the HPI. ROS Other: All systems not noted in ROS Statement are negative. Past Medical History Past Medical History: Asthma, GERD/Reflux Additional Past Medical History / Comment(s): Obesity, chest palpitations. "Lost 100 lbs, no BP problems now". Hx Asthma as a child. "Intermittent bleeding with bowel movements." Hx kidney stones. "Severe Jaundice as a baby." Chronic right leg pain/limps. Migraine headaches. History of Any Multi-Drug Resistant Organisms: None Reported Past Surgical History: Adenoidectomy, Bariatric Surgery, Ear Surgery, Hernia Repair, Orthopedic Surgery Additional Past Surgical History / Comment(s): Right knee arthroscopy, right tibial tumor removed (benign), right foot surgery, Gasrtic Sleeve, colonoscopy X2, EGD X2. Past Anesthesia/Blood Transfusion Reactions: Previous Problems w/ Anesthesia Additional Past Anesthesia/Blood Transfusion Reaction / Comment(s): Slow to wake up last 2 surgeries., no blood transfusion Past Psychological History: Bipolar, Schizophrenia Smoking Status: Former smoker - Past Family History Father Family Medical History: Cancer Additional Family Medical History / Comment(s): Colon cancer. Mother Family Medical History: Cancer Additional Family Medical History / Comment(s): lymphoma from round up General Exam Limitations: no limitations General appearance: alert, in no apparent distress Head exam: Present: atraumatic, normocephalic, normal inspection Eye exam: Present: normal appearance, PERRL, EOMI. Absent: scleral icterus, conjunctival injection, periorbital swelling ENT exam: Present: normal exam, mucous membranes moist Neck exam: Present: normal inspection. Absent: tenderness, meningismus, lymphadenopathy Respiratory exam: Present: normal lung sounds bilaterally. Absent: respiratory distress, wheezes, rales, rhonchi, stridor Cardiovascular Exam: Present: regular rate, normal rhythm, normal heart sounds. Absent: systolic murmur, diastolic murmur, rubs, gallop, clicks Back exam: Absent: CVA tenderness (R), CVA tenderness (L) Neurological exam: Present: alert, oriented X3 Psychiatric exam: Present: flat affect Skin exam: Present: warm, dry, intact, normal color. Absent: rash Course Vital Signs 01/30/25 16:33 Temperature 98.1 F Pulse Rate 67 Respiratory 16 Rate Blood Pressure 183/99 O2 Sat by Pulse 98 Oximetry Medical Decision Making - Medical Decision Making Was pt. sent in by a medical professional or institution (, [facility], urgent care, hospital, or fpc...) When possible be specific @ -No Did you speak to anyone other than the patient for history (EMS, parent, family, police, friend...)? What history was obtained from this source @ -No Did you review nursing and triage notes (agree or disagree)? Why? @ -I reviewed and agree with nursing and triage notes Were old charts reviewed (outside hosp., previous admission, EMS record, old EKG, old radiological studies, urgent care reports/EKG's, fpc records)? Report findings @ -No old charts were reviewed Differential Diagnosis (chest pain, altered mental status, abdominal pain women, abdominal pain men, vaginal bleeding, weakness, fever, dyspnea, syncope, headache, dizziness, GI bleed, back pain, seizure, CVA, palpatations, mental health, musculoskeletal)? @ -Differential Mental Health Depression, anxiety, bipolar, psychosis, schizophrenia, borderline personality, situational depression, adjustment disorder, behavioral disorder, brain tumor, malingering, substance abuse, encephalopathy, medication reaction, dementia, hypothyroidism, degenerative neurologic disorder, lupus.... This is not meant to be all-inclusive list EKG interpreted by me (3pts min.). @ -As above X-rays interpreted by me (1pt min.). @ -None done CT interpreted by me (1pt min.). @ -None done U/S interpreted by me (1pt. min.). @ -None done What testing was considered but not performed or refused? (CT, X-rays, U/S, labs)? Why? @ -None What meds were considered but not given or refused? Why? @ -None Did you discuss the management of the patient with other professionals (professionals i.e. , [facility], [facility], lab, RT, psych nurse, forensic social worker, razor sharpener, teacher, juvenile correctional officer, block and case maker)? Give summary @ -EPS who evaluated patient recommended inpatient treatment Was smoking cessation discussed for >3mins.? @ -No Was critical care preformed (if so, how long)? @ -No Were there social determinants of health that impacted care today? How? (Homelessness, low income, unemployed, alcoholism, drug addiction, transportation, low edu. Level, literacy, decrease access to med. care, shelter, rehab)? @ -No Was there de-escalation of care discussed even if they declined (Discuss DNR or withdrawal of care, Hospice)? DNR status @ -No What co-morbidities impacted this encounter? (DM, HTN, Smoking, COPD, CAD, Cancer, CVA, ARF, Chemo, Hep., AIDS, mental health diagnosis, sleep apnea, morbid obesity)? @ -None Was patient admitted / discharged? Hospital course, mention meds given and route, prescriptions, significant lab abnormalities, going to OR and other pertinent info. @ -[Admitted to 3 W. Undiagnosed new problem with uncertain prognosis? @ -No Drug Therapy requiring intensive monitoring for toxicity (Heparin, Nitro, Insulin, Cardizem)? @ -No Were any procedures done? @ -No Diagnosis/symptom? @ -Acute psychosis Acute, or Chronic, or Acute on Chronic? @ -Acute Uncomplicated (without systemic symptoms) or Complicated (systemic symptoms)? @ -Complicated Side effects of treatment? @ -No Exacerbation, Progression, or Severe Exacerbation? @ -No Poses a threat to life or bodily function? How? (Chest pain, USA, ND, pneumonia, PE, COPD, DKA, ARF, appy, cholecystitis, CVA, Diverticulitis, Homicidal, Suicidal, threat to staff... and all critical care pts) @ -No Disposition Clinical Impression: Bipolar 1 disorder, Acute psychosis Disposition: TRANSFER TO PSYCH HOSP/UNIT Referrals: Colby Blevins MD [Primary Care Provider] - 1-2 days Time of Disposition: 18:22
[2025-01-30 18:35] LABS: Cocaine Screen,Urine Not Detected (NotDetected); Opiate Screen,Urine Not Detected (NotDetected); Phencyclidine Screen,Urine Not Detected (NotDetected); Urn Cannabinoid Scrn Detected (NotDetected)
[2025-01-30 18:36] LABS: Amphetamine Screen,Urine Detected (NotDetected); Barbiturate Screen,Urine Not Detected (NotDetected); Benzodiazepines Screen,Urine Not Detected (NotDetected); Methadone Screen, Urine Not Detected (NotDetected); Oxycodone Screen, Urine Detected (NotDetected); Tricyclic Antidepressant,Urine Not Detected (NotDetected)
[2025-01-30] MEDS ORDERED: MAGNESIUM HYDROXIDE 2,400 MG/30 ML CUP PO PRN (22:29)
[2025-01-30] MEDS ORDERED: LORazepam 2 MG/ML INJ IM PRN (22:29)
[2025-01-30] MEDS ORDERED: LORazepam 1 MG TAB PO PRN (22:29)
[2025-01-30] MEDS ORDERED: MAG HYDROX/AL HYDROX/SIMETH 355 ML BOTTLE PO PRN (22:29)
[2025-01-30] MEDS: ACETAMINOPHEN TAB 325 MG TAB PO PRN (22:59)
[2025-01-31 08:26] LABS: Eosinophils # (A) 0.12 10*3/uL (0.04-0.35); Eosinophils % (A) 2.3 %; HCT 42.5 % (39.6-50.0); HGB 14.2 g/dL (13.0-17.0); Lymphocytes # (A) 1.46 10*3/uL (0.90-5.00); Lymphocytes % (A) 27.4 %; MCH 32.3 pg (27.0-32.0); MCHC 33.4 g/dL (32.0-37.0); MCV 96.8 fL (80.0-97.0); Mean Platelet Volume 10.1 fL (9.5-12.2); Monocytes # (A) 0.46 10*3/uL (0.20-1.00); Monocytes % (A) 8.6 %; Neutrophils # (A) 3.26 10*3/uL (1.80-7.70); Neutrophils % (A) 61.3 %; Platelet Count 234 10*3/uL (140-440); RBC 4.39 10*6/uL (4.40-5.60); WBC 5.32 10*3/uL (4.50-10.00)
[2025-01-31 08:39] LABS: ALT 18 U/L (4-49); AST 26 U/L (17-59); African American GFR (CKD) >90 (>60 ml/min/1.73 sqM); Albumin 4.3 g/dL (3.5-5.0); Alkaline Phosphatase 65 U/L (38-126); Anion Gap 5 mmol/L; Blood Urea Nitrogen 10 mg/dL (9-20); Calcium 9.7 mg/dL (8.4-10.2); Carbon Dioxide 31 mmol/L (22-30); Chloride 104 mmol/L (98-107); Glucose 92 mg/dL (74-99); Non-African American GFR(CKD) >90 (>60 ml/min/1.73 sqM); Potassium 4.7 mmol/L (3.5-5.1); Sodium 140 mmol/L (137-145); Total Bilirubin 0.6 mg/dL (0.2-1.3); Total Protein 6.9 g/dL (6.3-8.2)
[2025-01-31] MEDS: GABAPENTIN 300 MG CAP PO SCH (08:44)
[2025-01-31] MEDS: lamoTRIgine 100 MG TAB PO SCH ×2 (08:45→21:04)
[2025-01-31] MEDS: LURASIDONE 40 MG TAB PO SCH (08:45)
[2025-01-31] MEDS: oxyCODONE-APAP 10-325MG 1 EACH TAB PO PRN (10:35)
[2025-01-31] MEDS: NON FORMULARY DRUG (Cariprazine Hcl [Vraylar] 3 MG Capsule) PO SCH (12:08)
[2025-01-31] MEDS: VRAYLAR 3 MG PO SCH (12:30)
--- NOTE | 2025-01-31 14:42 | P.HP ---
Psychiatric H&P - . H&P Date: 01/31/25 History & Physical: Allergies Allergy/AdvReac Type Severity Reaction Status Date / Time oxcarbazepine Allergy Rash/Hives Verified 01/30/25 16:57 From Trileptal Vital Signs Temp 97.8 F 01/31/25 09:00 Pulse 82 01/31/25 09:00 Resp 18 01/31/25 09:00 BP 132/90 01/31/25 09:00 Pulse Ox 97 01/31/25 09:00 FiO2 Intake & Output 01/30/25 01/31/25 01/31/25 18:59 06:59 18:59 Weight 131.088 kg 127.913 kg Laboratory Last Values WBC 5.32 10*3/uL (4.50-10.00) 01/31/25 07:50 RBC 4.39 10*6/uL (4.40-5.60) L 01/31/25 07:50 Hgb 14.2 g/dL (13.0-17.0) 01/31/25 07:50 Hct 42.5 % (39.6-50.0) 01/31/25 07:50 MCV 96.8 fL (80.0-97.0) 01/31/25 07:50 MCH 32.3 pg (27.0-32.0) H 01/31/25 07:50 MCHC 33.4 g/dL (32.0-37.0) 01/31/25 07:50 Plt Count 234 10*3/uL (140-440) 01/31/25 07:50 MPV 10.1 fL (9.5-12.2) 01/31/25 07:50 Immature Gran % (Auto) 0.4 % 01/31/25 07:50 Neutrophils % 61.3 % 01/31/25 07:50 Lymphocytes % 27.4 % 01/31/25 07:50 Monocytes % 8.6 % 01/31/25 07:50 Eosinophils % 2.3 % 01/31/25 07:50 Basophils % 0.0 % 01/31/25 07:50 Immature Gran # 0.02 10*3/uL (0.00-0.04) 01/31/25 07:50 Neutrophils # 3.26 10*3/uL (1.80-7.70) 01/31/25 07:50 Lymphocytes # 1.46 10*3/uL (0.90-5.00) 01/31/25 07:50 Monocytes # 0.46 10*3/uL (0.20-1.00) 01/31/25 07:50 Eosinophils # 0.12 10*3/uL (0.04-0.35) 01/31/25 07:50 Basophils # 0.00 10*3/uL (0.00-0.10) 01/31/25 07:50 Sodium 140 mmol/L (137-145) 01/31/25 07:50 Potassium 4.7 mmol/L (3.5-5.1) 01/31/25 07:50 Chloride 104 mmol/L (98-107) 01/31/25 07:50 Carbon Dioxide 31 mmol/L (22-30) H 01/31/25 07:50 Anion Gap 5 mmol/L 01/31/25 07:50 BUN 10 mg/dL (9-20) 01/31/25 07:50 Creatinine 0.85 mg/dL (0.66-1.25) 01/31/25 07:50 Est GFR (CKD-EPI)AfAm >90 (>60 ml/min/1.73 sqM) 01/31/25 07:50 Est GFR (CKD-EPI)NonAf >90 (>60 ml/min/1.73 sqM) 01/31/25 07:50 Glucose 92 mg/dL (74-99) 01/31/25 07:[address] Glu mg/dL 100 mg/dL 01/31/25 07:50 Hemoglobin A1c 5.1 % (<=6.0) 01/31/25 07:50 Calcium 9.7 mg/dL (8.4-10.2) 01/31/25 07:50 Total Bilirubin 0.6 mg/dL (0.2-1.3) 01/31/25 07:50 AST 26 U/L (17-59) 01/31/25 07:50 ALT 18 U/L (4-49) 01/31/25 07:50 Alkaline Phosphatase 65 U/L (38-126) 01/31/25 07:50 Total Protein 6.9 g/dL (6.3-8.2) 01/31/25 07:50 Albumin 4.3 g/dL (3.5-5.0) 01/31/25 07:50 TSH 1.040 mIU/L (0.465-4.680) 01/31/25 07:50 Urine Opiates Screen Not Detected (NotDetected) 01/30/25 18:15 Ur Oxycodone Screen Detected (NotDetected) H 01/30/25 18:15 Urine Methadone Screen Not Detected (NotDetected) 01/30/25 18:15 Ur Barbiturates Screen Not Detected (NotDetected) 01/30/25 18:15 U Tricyclic Antidepress Not Detected (NotDetected) 01/30/25 18:15 Ur Phencyclidine Scrn Not Detected (NotDetected) 01/30/25 18:15 Ur Amphetamines Screen Detected (NotDetected) H 01/30/25 18:15 U Methamphetamines Scrn Not Detected (NotDetected) 01/30/25 18:15 U Benzodiazepines Scrn Not Detected (NotDetected) 01/30/25 18:15 Urine Cocaine Screen Not Detected (NotDetected) 01/30/25 18:15 U Marijuana (THC) Screen Detected (NotDetected) H 01/30/25 18:15 SARS-CoV-2 (PCR) Not Detected (Not Detectd) 01/30/25 18:11 01/31/25 14:32 IDENTIFYING DATA: Patient is a 44-year-old male, employed and living with son CHIEF COMPLAINT: Hallucinations HPI: Patient presented to the hospital with hallucinations. Per EPS, "pt arrived to ER with complaint of worsening hallucinations. pt states, "My hallucinations are getting outta hand." pt states that he has been taking prescribed medications as directed, but noticed that they have been becoming increasingly ineffective for the past three weeks. pt states that hallucinations are usually "just incessant whispering" but that they have been becoming command in nature. pt states that the voices have told him things such as "just go slit yourself open" or "you should go steal something because it'll be fun." pt reports that these are becoming louder and more insistent and he has not been able to drown them out with music or other things that he has done in the past. pt reports that he has been experiencing SI. pt states that he does not want to , but the voices are bothering him so much that he wishes they would just stop even if it meant he were to . pt denies HI. No delusional thoughts verbalized. pt cooperative with assessment." Patient seen and evaluated on the unit and was agreeable with speaking to advertising writer in office. He states hallucinations began roughly 10 years ago however has been stable up until recently. He mentions having a diagnosis of schizoaffective disorder and that his PCP is currently prescribing 3 antipsychotics including Vraylar, Latuda and Zyprexa however noting that Latuda was recently added about a week ago. He denies any current auditory hallucinations, last hearing them yesterday in the ED. He describes his hallucinations as whispering, background noises. He reports feeling disoriented as well described as seeing the world through 3D lenses. Patient denied any sleep or appetite difficulties, low energy or poor concentration. He does report anxiety that appears more generalized in nature along with racing thoughts feeling on edge. Patient denies any suicidal or homicidal ideations intent or plan. At this time patient denies any auditory or visual hallucinations. Patient denies any flight of ideas racing thoughts and increased in goal directed behavior. Patient admits to using occasional alcohol and cannabis, vehemently denying any amphetamine or stimulant use however did admit to taking diet pills from his mom for several days last week. PAST PSYCHIATRIC HISTORY: Patient has a history of schizoaffective disorder. Patient is currently prescribed Latuda 40 mg daily, Vraylar 3 mg daily, Zyprexa 30 mg at bedtime, Effexor XR 300 mg at bedtime, Lamictal 100 mg daily and 200 mg at bedtime. He has tried Geodon and Seroquel previously. His PCP prescribes his current medications. Patient denies any previous psychiatric hospitalizations. Patient denies any psychiatric outpatient follow-up. Patient reports 1 suicide attempt via cutting back in the early . PMH: as per ER note ALLERGIES: as per EMR SUBSTANCE USE HISTORY: Patient reports rare alcohol and cannabis use, denying any nicotine or other substances FAMILY PSYCHIATRIC/SUBSTANCE USE HISTORY: Patient states his mother and sister both had bipolar disorder and that his grandpa abused alcohol SOCIAL HISTORY: Patient is and lives with his son every other week. 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 MENTAL STATUS EXAM: General Appearance: Patient appears to be stated age is alert, directable, and attempts to cooperate. Patient appears to have fair hygiene and grooming. He has dyed colored hair, overweight Behavior: Patient is seated without any agitated behavior. Speech: Patient's speech is fluent and nonpressured. Mood/Affect: Patient reports their mood is "okay", affect is congruent and constricted. Suicidality/Homicidality: Patient denies having any homicidal ideation intent or plan. Denies any suicidal ideations intent or plan Perceptions: Patient denies any visual hallucinations and denies any auditory hallucinations. He did not appear internally preoccupied Though content/process: There is no evidence of any delusional thought content and thought process is linear and goal-directed. Memory and concentration: AOX3, grossly intact for the purposes of this session. Can spell "WORLD" backwards Judgment and insight: Fair STRENGTHS/WEAKNESSES: strength is that patient is resilient, has a home whom he lives with his son and is employed. Weakness is that patient has poor judgment and is impulsive INTELLECT: Average IMPRESSIONS: Schizoaffective disorder Rule out substance-induced psychotic disorder Generalized anxiety disorder PLAN: -Patient is admitted under voluntary status to [facility] for stabilization of psychiatric symptoms and safety. Patient has signed adult voluntary form and and is placed in patient's chart. -Medications : Start perphenazine 4 mg twice daily for psychosis, discontinue Vraylar and Latuda, continue Zyprexa 30 mg at bedtime for psychosis/sleep, Effexor XR 300 mg at bedtime for depression/anxiety, Lamictal 100 mg daily and 200 mg at bedtime -Ativan PRN for agitation/aggression -Patient was informed of the risks, benefits and side effects of the medication and patient verbally consented to taking the medications. Patient signed med consent form and was placed in chart. [Patient offered and accepted patient education sheet for antipsychotics.] -Internal Medicine consult to perform medical evaluation and physical. -NRT -not needed as patient does not smoke -SW on board for discharge planning. Encourage patient to participate in groups to work on coping skills.
[2025-01-31 15:39] LABS: Chol/HDL Ratio 4.52 Ratio; LDL Cholesterol,Calculated 151.5 mg/dL (0.0-131.0)
[2025-01-31] MEDS: TOPIRAMATE 100 MG TAB PO SCH (19:09)
[2025-01-31] MEDS: BACLOFEN 10 MG TAB PO SCH (21:04)
[2025-01-31] MEDS: VENLAFAXINE HCL ER 150 MG CAP PO SCH (21:04)
[2025-01-31] MEDS: OLANZapine 10 MG TAB PO SCH ×2 (21:04)
[2025-01-31] MEDS: PERPHENAZINE 4 MG TAB PO SCH (21:08)
[2025-01-31] MEDS: PROPRANOLOL LA 60 MG CAP.SA.24H PO SCH (21:08)
--- NOTE | 2025-01-31 23:37 | P.CONS ---
History of Present Illness - History of Present Illness This is a pleasant 44 years old male with past medical history of multiple me dical problems as below. Including history of cirrhosis of the liver as patient describes from old alcohol disorder Presents because of signs symptoms of schizoaffective disorder versus substance-induced psychosis versus generalized anxiety disorder Patient walking in the hallway with no problem denies chest pain or dyspnea. Denies abdominal pain or any other specific GI/ symptom. No headache dizziness weakness or numbness. He smokes about two thirds of the pack every day. She was counseled to quit and she agrees. She uses a gum. She is stopped drinking alcohol and she is currently sober for 1 year. She is hemodynamically stable CBC, BMP LFT were unremarkable. TSH normal 1.40. LDL is elevated 151 triglyceride 212. Urine drug screen positive for marijuana and amphetamine COVID test is negative. EKG showing sinus bradycardia at [address]-T changes and received 401 Review of Systems Review of systems CONSTITUTIONAL: No fever, no malaise, no fatigue. HEENT: No recent visual problems or hearing problems. Denied any sore throat. CARDIOVASCULAR: No orthopnea, PND, no palpitations, no syncope. PULMONARY: No shortness of breath, no cough, no hemoptysis. GASTROINTESTINAL: No diarrhea, no nausea, no vomiting, no abdominal pain. Normoactive bowel sounds. NEUROLOGICAL: No headaches, no weakness, no numbness. HEMATOLOGICAL: Denies any bleeding or petechiae. GENITOURINARY: Denies any burning micturition, frequency, or urgency. MUSCULOSKELETAL/RHEUMATOLOGICAL: Denies any joint pain, swelling, or any muscle pain. ENDOCRINE: Denies any polyuria or polydipsia. Past Medical History Past Medical History: Asthma, GERD/Reflux Additional Past Medical History / Comment(s): Hx kidney stones. Chronic right leg pain/limps. Migraine headaches. History of Any Multi-Drug Resistant Organisms: None Reported Past Surgical History: Adenoidectomy, Bariatric Surgery, Ear Surgery, Hernia Repair, Orthopedic Surgery Additional Past Surgical History / Comment(s): Right knee arthroscopy, right tib ial tumor removed (benign), right foot surgery, Gastric Sleeve Past Anesthesia/Blood Transfusion Reactions: Previous Problems w/ Anesthesia Additional Past Anesthesia/Blood Transfusion Reaction / Comm: Slow to wake up last 2 surgeries Smoking Status: Current every day smoker, Vaper - Past Family History Father Family Medical History: Cancer Additional Family Medical History / Comment(s): Colon cancer. Mother Family Medical History: Cancer Additional Family Medical History / Comment(s): lymphoma Medications and Allergies Home Medications Medication Instructions Recorded Confirmed Type Venlafaxine HCl [Effexor XR] 300 mg PO HS 05/16/14 01/30/25 History SUMAtriptan succinate [Imitrex] 100 mg PO DAILY PRN 01/25/21 01/30/25 History lamoTRIgine [LaMICtal] 200 mg PO HS 01/25/21 01/30/25 History oxyCODONE-APAP 10-325MG [Percocet 1 tab PO QID 01/25/21 01/30/25 History 10-325 mg] Baclofen 10 mg PO HS 11/02/24 01/30/25 History Cariprazine HCl [Vraylar] 3 mg PO DAILY 11/02/24 01/30/25 History Gabapentin [Neurontin] 300 mg PO TID 01/30/25 01/30/25 History Ketoconazole 2% Shampoo [Nizoral] 1 applic TOPICAL Q3D 01/30/25 01/30/25 History Lurasidone [Latuda] 40 mg PO DAILY 01/30/25 01/30/25 History OLANZapine [ZyPREXA] 10 mg PO HS 01/30/25 01/30/25 History OLANZapine [ZyPREXA] 20 mg PO HS 01/30/25 01/30/25 History Propranolol HCl [Propranolol HCl 120 mg PO HS 01/30/25 01/30/25 History ER] Topiramate [Topamax] 100 mg PO W/SUPPER 01/30/25 01/30/25 History lamoTRIgine [LaMICtal] 100 mg PO DAILY 01/30/25 01/30/25 History Allergies Allergy/AdvReac Type Severity Reaction Status Date / Time oxcarbazepine Allergy Rash/Hives Verified 01/30/25 16:57 [From Trileptal] Physical Exam Vitals: Vital Signs Temp Pulse Resp BP Pulse Ox 01/31/25 21:00 97.6 F 97 16 128/89 99 01/31/25 09:00 97.8 F 82 18 132/90 97 GENERAL: The patient is alert and oriented x3, not in any acute distress. Well developed, well nourished. HEENT: Pupils are round and equally reacting to light. EOMI. No scleral icterus. No conjunctival pallor. Normocephalic, atraumatic. No pharyngeal erythema. No thyromegaly. CARDIOVASCULAR: S1 and S2 present. No murmurs, rubs, or gallops. PULMONARY: Chest is clear to auscultation, no wheezing , no crackles. ABDOMEN: Soft, nontender, nondistended, normoactive bowel sounds. No palpable organomegaly. MUSCULOSKELETAL: No joint swelling or deformity. EXTREMITIES: No cyanosis, clubbing, or pedal edema. NEUROLOGICAL: Gross neurological examination did not reveal any focal deficits. SKIN: No rashes. no petechiae. Results CBC & Chem 7: 01/31/25 07:50 01/31/25 07:50 Labs: Abnormal Lab Results - Last 24 Hours (Table) 01/31/25 01/31/25 Range/Units 07:50 07:50 RBC 4.39 L (4.40-5.60) 10*6/uL MCH 32.3 H (27.0-32.0) pg Carbon Dioxide 31 H (22-30) mmol/L Triglycerides 212.00 H (0.00-149.00) mg/dL Cholesterol 249.00 H (0.00-200.00) mg/dL LDL Cholesterol, Calc 151.5 H (0.0-131.0) mg/dL VLDL Cholesterol, Calc 42.40 H (5.00-40.00) mg/dL Assessment and Plan Assessment: Assessment and plan: Multiple health problems like anxiety group she is on affective disorder versus substance-induced psychosis: Management as per psych primary team Nicotine dependence: Continue with nicotine gum, patient was counseled. Hyperlipidemia: Start Lipitor Substance abuse with marijuana and amphetamine we refused to discuss tilt History of liver cirrhosis, asymptomatic. Follow-up outpatient Thank you for consulting us
--- NOTE | 2025-02-01 13:17 | P.PN ---
Progress Note - Text Progress Note Date: 02/01/25 Interval History: Patient was seen in his arm and was directable and agreeable to speak with brock greer in the office. Patient mentions feeling better today, denying any reality distortions today. He mentions waking up early however this is chronic as he normally wakes up at 4 AM for work. He states his auditory hallucinations are better. His girlfriend plans on visiting him today. He feels as though Latuda could have been the cause of worsening hallucinations despite education on amphetamines also contributing to this. At this time patient denies any suicidal or homicidal ideations, intent or plan. Patient denies any auditory, visual hallucinations and denies any paranoia or delusions. Patient denies any side effects from the medications and has been compliant with meds. Mental Status Exam: General Appearance: Patient appears to be stated age is alert, directable, and cooperative. He has color dyed hair Behavior: Patient is calmly seated without any agitated behavior. Speech: Patient's speech is fluent and nonpressured. Mood/Affect: Mood is improving mildly, affect is congruent and full range. Suicidality/Homicidality: Patient denies having any suicidal or homicidal ideation intent or plan. Perceptions: Patient denies any visual hallucinations and denies any auditory hallucinations Though content/process: There is no evidence of any delusional thought content and thought process is linear and goal-directed. Memory and concentration: AOX3, grossly intact for the purposes of this session Judgment and insight: Improving mildly Assessment Schizoaffective disorder Rule out substance-induced psychotic disorder Generalized anxiety disorder Plan: -Patient continues to meet criteria for inpatient psychiatric admission for symptom stabilization and safety. Patient has signed adult voluntary form and medication consent and was placed in patient's chart. -Medications: Continue perphenazine 4 mg twice daily for psychosis, Zyprexa 30 mg at bedtime for psychosis/sleep, Effexor XR 300 mg at bedtime for depression/anxiety, Lamictal 100 mg daily and 200 mg at bedtime for mood stabilization -When necessary Ativan as needed for agitation/aggression. -Labs: Lipid panel elevated however will defer to PCP for further management -SW on board for discharge planning. Encouraged the patient to participate in milieu. Anticipate discharge back home on Thursday
[2025-02-02] MEDS: hydrOXYzine pamoate 25 MG CAP PO PRN (10:35)
[2025-02-02] MEDS: SUMAtriptan succinate 50 MG TAB PO PRN (13:10)
--- NOTE | 2025-02-02 14:05 | P.PN ---
Progress Note - Text Progress Note Date: 02/02/25 Interval History: Patient was seen in group and was directable and agreeable to speak with play writer in the office. He continues to express feeling well exhibiting no distortions or hallucinations. He does admit to moderate anxiety and was agreeable with trialing hydroxyzine for this. He has been attending groups, social with peers. His girlfriend visited him yesterday during visitations and she can pick him up tomorrow. At this time patient denies any suicidal or homicidal ideations, inte nt or plan. Patient denies any auditory, visual hallucinations and denies any paranoia or delusions. Patient denies any side effects from the medications and has been compliant with meds. Mental Status Exam: General Appearance: Patient appears to be stated age is alert, directable, and cooperative. He has blue/purple dyed hair Behavior: Patient is calmly seated without any agitated behavior. Speech: Patient's speech is fluent and nonpressured. Mood/Affect: Mood is "good", affect is congruent and reactive. Suicidality/Homicidality: Patient denies having any suicidal or homicidal ideation intent or plan. Perceptions: Patient denies any visual hallucinations and denies any auditory hallucinations Though content/process: There is no evidence of any delusional thought content and thought process is linear and goal-directed. Memory and concentration: AOX3, grossly intact for the purposes of this session Judgment and insight: Improving mildly Assessment Schizoaffective disorder Rule out substance-induced psychotic disorder Generalized anxiety disorder Plan: -Patient continues to meet criteria for inpatient psychiatric admission for symptom stabilization and safety. Patient has signed adult voluntary form and medication consent and was placed in patient's chart. -Medications: Continue perphenazine 4 mg twice daily for psychosis, Zyprexa 30 mg at bedtime for psychosis/sleep, Effexor XR 300 mg at bedtime for depression/anxiety, Lamictal 100 mg daily and 200 mg at bedtime for mood stabilization -When necessary Ativan and hydroxyzine for agitation/aggression. -Labs: Lipid panel elevated however will defer to PCP for further management -SW on board for discharge planning. Encouraged the patient to participate in milieu. Anticipate discharge back home tomorrow
[2025-02-02 20:36] VITALS: RESP 18; TEMP 98.1
[2025-02-02] MEDS: IBUPROFEN 600 MG TAB PO PRN (22:19)
[2025-02-03 09:52] VITALS: BP 91/66; PULSE 84
--- NOTE | 2025-02-03 13:03 | P.DS ---
Providers Date of admission: 01/30/25 22:12 Expected date of discharge: 02/03/25 Attending physician: Maral Tarango MD Consults: 01/30/25 22:29 Consult Physician Routine Consulting Provider: Colby Blevins Consult Reason/Comments: H&P and medical Do you want consulting provider notified?: Yes, Notify in am Primary care physician: Colby Blevins MD - Discharge Diagnosis(es) (1) Schizoaffective disorder Current Visit: Yes Status: Acute Priority: High (2) Generalized anxiety disorder Current Visit: Yes Status: Acute Priority: Medium Hospital Course: Admission HPI: Admission note was completed by medical underwriter "Patient presented to the hospital with hallucinations. Per EPS, "pt arrived to ER with complaint of worsening hallucinations. pt states, "My hallucinations are getting outta hand." pt states that he has been taking prescribed medications as directed, but noticed that they have been becoming increasingly ineffective for the past three weeks. pt states that hallucinations are usually "just incessant whispering" but that they have been becoming command in nature. pt states that the voices have told him things such as "just go slit yourself open" or "you should go steal something because it'll be fun." pt reports that these are becoming louder and more insistent and he has not been able to drown them out with music or other things that he has done in the past. pt reports that he has been experiencing SI. pt states that he does not want to , but the voices are bothering him so much that he wishes they would just stop even if it meant he were to . pt denies HI. No delusional thoughts verbalized. pt cooperative with assessment." Patient seen and evaluated on the unit and was agreeable with speaking to medical underwriter in office. He states hallucinations began roughly 10 years ago however has been stable up until recently. He mentions having a diagnosis of schizoaffective disorder and that his PCP is currently prescribing 3 antipsychotics including Vraylar, Latuda and Zyprexa however noting that Latuda was recently added about a week ago. He denies any current auditory hallucinations, last hearing them yesterday in the ED. He describes his hallucinations as whispering, background noises. He reports feeling disoriented as well described as seeing the world through 3D lenses. Patient denied any sleep or appetite difficulties, low energy or poor concentration. He does report anxiety that appears more generalized in nature along with racing thoughts feeling on edge. Patient denies any suicidal or homicidal ideations intent or plan. At this time patient denies any auditory or visual hallucinations. Patient denies any flight of ideas racing thoughts and increased in goal directed behavior. Patient admits to using occasional alcohol and cannabis, vehemently denying any amphetamine or stimulant use however did admit to taking diet pills from his mom for several days last week." Hospital course: Upon admission to the unit patient was directable and agreeable to commence treatment and signed adult voluntary form.. Patient got along well with other patients on the unit and followed unit protocol. Patient was compliant with the medications and denied any side effects throughout hospital course. Patient was started on perphenazine 4 mg twice daily for psychosis with both Latuda and Vraylar discontinued, he was continued on his Zyprexa 30 mg at bedtime, Effexor XR 300 mg at bedtime, Lamictal 100 mg daily and 200 mg at bedtime. Patient spoke of his stressors and engaged in therapy both group and individual. Patient was also seen by medical team for history and physical exam. Patient did have elevated lipid panel and medical team recommended starting a statin however this will be deferred to patient's outpatient PCP. Throughout the course of the hospitalization patient gradually improved with regards to mood, anxiety, sleep and became more future oriented with improved insight and judgment. On the day of discharge patient denied any suicidal or homicidal ideations intent or plan denied any auditory or visual hallucinations. The patient denied any access to guns or weapons. Patient denied any paranoia and did not endorse any delusions. Patient does not have a significant history of substance abuse and was counseled on abstaining from all substances including alcohol and marijuana. Patient was also counseled on the medications and need for regular compliance and was encouraged to follow-up with their outpatient appointment for mental health and also for primary care. Prior to discharge a family meeting will be arranged by social welfare research worker to answer any questions and ensure safety upon discharge including making sure that guns/weapons are either removed from the home or locked away. Patient to be discharged back home alone with son and will follow-up with PCC. Mental status exam: General Appearance: Patient appears to be stated age is alert, pleasant, and cooperative. Patient is in no acute distress and has improved hygiene and grooming. He has purple/blue dyed hair and wears glasses Behavior: Patient is calmly seated without any agitated behavior. Speech: Patient's speech is fluent and nonpressured. Mood/Affect: Patient reports their mood is "better", affect is congruent and euthymic. Suicidality/Homicidality: Patient denies having any suicidal or homicidal ideation intent or plan. Perceptions: Patient denies any auditory or visual hallucinations. Though content/process: There is no evidence of any delusional thought content and thought process is linear and goal-directed. More future oriented Memory and concentration: AOX3, grossly intact for the purposes of this session. Can spell "WORLD" backwards correctly. Judgment and insight: Good Impression: Schizoaffective disorder Generalized anxiety disorder Plan: -Continue with discharge today as patient has improved and stabilized psychiatrically and is not currently an imminent threat to themself and/or others. -Continue medications: Perphenazine 4 mg twice daily, Zyprexa 30 mg at bedtime, Effexor XR 300 mg at bedtime, Lamictal 100 mg daily and 200 mg at bedtime -Patient was counseled on the need for medication compliance and appropriate follow-up at mental health and also primary care for medical issues. Patient verbalized understanding and agreed. -Social work to help coordinate patients discharge today. also to ensure safe home environment that guns/weapons are either removed from the home or locked away. Social work also to arrange for patients follow up appointments [facility]CC for psychiatric care along with follow up with primary care provider. -Patient counseled on abstaining from recreational drugs and marijuana and alcohol. Was informed/educated on the adverse effects on their physical and mental health. Patient verbally agreed and understood. -Patient was instructed to return to the hospital or seek immediate medical care if their psychiatric or medical symptoms do worsen or reoccur. Abnormal Labs 01/30/25 01/31/25 01/31/25 18:15 07:50 07:50 RBC 4.39 L MCH 32.3 H Carbon Dioxide 31 H Triglycerides 212.00 H Cholesterol 249.00 H LDL Cholesterol, Calc 151.5 H VLDL Cholesterol, Calc 42.40 H Ur Oxycodone Screen Detected H Ur Amphetamines Screen Detected H U Marijuana (THC) Screen Detected H Allergies Allergy/AdvReac Type Severity Reaction Status Date / Time oxcarbazepine Allergy Rash/Hives Verified 01/30/25 16:57 [From Trileptal] Vital Signs Temp 98.1 F 02/02/25 20:35 Pulse 84 02/03/25 09:00 Resp 18 02/02/25 20:35 BP 91/66 02/03/25 09:00 Pulse Ox 98 02/02/25 20:35 FiO2 Patient Condition at Discharge: Stable Plan - Discharge Summary Discharge Rx Participant: No New Discharge Prescriptions: New Venlafaxine HCl ER [Effexor XR] 300 mg PO HS 30 Days #60 cap lamoTRIgine [LaMICtal] 200 mg PO HS 30 Days #60 tab Perphenazine [Trilafon] 4 mg PO BID 30 Days #60 tab Continue lamoTRIgine [LaMICtal] 200 mg PO HS Baclofen 10 mg PO HS 30 Days #30 tab Gabapentin [Neurontin] 300 mg PO TID 30 Days #90 cap Propranolol HCl [Propranolol HCl ER] 120 mg PO HS 30 Days #30 cap Topiramate [Topamax] 100 mg PO W/SUPPER 30 Days #30 tab OLANZapine [ZyPREXA] 10 mg PO HS 30 Days #60 tab oxyCODONE-APAP 10-325MG [Percocet 10-325 mg] 1 tab PO QID lamoTRIgine [LaMICtal] 100 mg PO DAILY OLANZapine [ZyPREXA] 20 mg PO HS 30 Days #30 tab Discontinued Venlafaxine HCl [Effexor XR] 300 mg PO HS SUMAtriptan succinate [Imitrex] 100 mg PO DAILY PRN PRN Reason: Migraine Headache Ketoconazole 2% Shampoo [Nizoral] 1 applic TOPICAL Q3D Cariprazine HCl [Vraylar] 3 mg PO DAILY Lurasidone [Latuda] 40 mg PO DAILY Discharge Medication List lamoTRIgine [LaMICtal] 200 mg PO HS 01/25/21 [History] oxyCODONE-APAP 10-325MG [Percocet 10-325 mg] 1 tab PO QID 01/25/21 [History] lamoTRIgine [LaMICtal] 100 mg PO DAILY 01/30/25 [History] Baclofen 10 mg PO HS 30 Days #30 tab 02/03/25 [Rx] Gabapentin [Neurontin] 300 mg PO TID 30 Days #90 cap 02/03/25 [Rx] OLANZapine [ZyPREXA] 10 mg PO HS 30 Days #60 tab 02/03/25 [Rx] OLANZapine [ZyPREXA] 20 mg PO HS 30 Days #30 tab 02/03/25 [Rx] Perphenazine [Trilafon] 4 mg PO BID 30 Days #60 tab 02/03/25 [Rx] Propranolol HCl [Propranolol HCl ER] 120 mg PO HS 30 Days #30 cap 02/03/25 [Rx] Topiramate [Topamax] 100 mg PO W/SUPPER 30 Days #30 tab 02/03/25 [Rx] Venlafaxine HCl ER [Effexor XR] 300 mg PO HS 30 Days #60 cap 02/03/25 [Rx] lamoTRIgine [LaMICtal] 200 mg PO HS 30 Days #60 tab 02/03/25 [Rx] Follow up Appointment(s)/Referral(s): [facility] [Outside] - 02/08/25 2:30 pm (02/08 @ 14:30 w/ Sky Schwab Please bring id and insurance card If unable to attend please call office) Colby Blevins MD [Primary Care Provider] - 1-2 days Patient Instructions/Handouts: Mood Disorders (DC), Anxiety (GEN) Activity/Diet/Wound Care/Special Instructions: [facility] Discharge Info Avoid the use of street drugs and alcohol. Take all medications as prescribed. When you are in need of refills on your medications, please contact your outpatient medical provider and/or outpatient psychiatrist. Please go to your scheduled outpatient appointments for aftercare treatment. If symptoms return or become worse, call the crisis line at or and/or visit the nearest emergency room for assistance. National Suicide and Crisis Lifeline - call or text 886
== END 2025-02-03 13:35 | disposition home or self-care (01) | DRG 885 ==
LOC: EC 16:29 → 3MHU 22:12
PROVIDERS: ADMIT Psychiatry & Neurology Psychiatry; ATTEND Psychiatry & Neurology Psychiatry
DX: F25.9 Schizoaffective disorder, unspecified (principal); K74.60 Unspecified cirrhosis of liver; E66.9 Obesity, unspecified; F15.159 Other stimulant abuse with stimulant-induced psychotic disorder, unspecified; F12.10 Cannabis abuse, uncomplicated; J45.909 Unspecified asthma, uncomplicated; Z68.41 Body mass index [BMI] 40.0-44.9, adult; F41.1 Generalized anxiety disorder; E78.5 Hyperlipidemia, unspecified; G89.29 Other chronic pain; K21.9 Gastro-esophageal reflux disease without esophagitis; R45.1 Restlessness and agitation; M79.604 Pain in right leg; G43.909 Migraine, unspecified, not intractable, without status migrainosus; F17.210 Nicotine dependence, cigarettes, uncomplicated; F17.290 Nicotine dependence, other tobacco product, uncomplicated; Z71.6 Tobacco abuse counseling; Z79.899 Other long term (current) drug therapy; Z87.09 Personal history of other diseases of the respiratory system; Z87.442 Personal history of urinary calculi; Z98.84 Bariatric surgery status; Z88.8 Allergy status to other drugs, medicaments and biological substances; Z71.89 Other specified counseling
CPT/HCPCS: 80053; 80061; 80306; 82075; 83036; 84443; 85025; 87635; 93005; 99285